=== PATIENT | male | born 1995 | race Caucasian/White ===

== ENCOUNTER → 2017-09-28 | Outpatient (CLI) | payer BC ==
[~2017-09-28] VITALS: Ht 175.3 cm; Wt 106.6 kg
[~2017-09-28] MED LIST: GADOBUTROL 7.5 MMOL/7.5 ML (GADAVIST) VIAL IV ONE; IOHEXOL 300 MG/ML 50 ML (OMNIPAQUE 300) VIAL IV ONE; LIDOCAINE 1% INJ 20 ML (XYLOCAINE) VIAL INJ ONE
[2017-09-28 07:54] VITALS: BP 132/80
[2017-09-28 08:24] VITALS: BP 124/67
--- NOTE | 2017-09-28 10:13 | Diagnostic Imaging Report ---
EXAMINATION: Fluoroscopic guided joint injection/arthrogram- left. INDICATION: Left shoulder pain, request for MR arthrogram of the shoulder is submitted. Fluoroscopy time: 20 seconds CONSENT: Informed consent was obtained from the patient. The risks, benefits, potential complications and alternatives were reviewed and all questions answered to the patient's satisfaction. PROCEDURE: After sterile preparation and draping, 1% lidocaine was utilized for local anesthesia. A 22 spinal needle is introduced into the glenohumeral joint under fluoroscopic guidance. After confirmation of proper positioning with intra-articular injection of, 15 ml of 1:150 concentration of Gadavist in normal saline is injected the into the joint. The patient tolerated the procedure well with no immediate complications. FINDINGS: Arthrogram demonstrates Normal distribution of contrast in the joint with no filling of the subacromial subdeltoid bursa seen. IMPRESSION: Successful fluoroscopic guided injection of diluted gadolinium into the left shoulder . MR arthrogram to follow. Dictated by: Dictated on workstation # [id number]
--- NOTE | 2017-09-28 10:28 | Diagnostic Imaging Report ---
PROCEDURE: MRI left joint upper extremity with intra-articular contrast. TECHNIQUE: Multiplanar, multisequence intra-articular contrast-enhanced MRI of the left upper extremity was accomplished. INDICATION: Left shoulder pain. FINDINGS: The glenohumeral joint is with contrast extension along the posterior aspect of the labrum at its attachment to the glenoid suggestive of a nondisplaced tear. There is also a labrum tear involving the inferior segment of the labrum. The superior labrum posteriorly also demonstrates a tear with the paralabral cyst at the posterior upper aspect of the glenoid rim measuring 6 x 6 x 4 mm. The biceps anchor appear unremarkable. The long head of biceps tendon appears normal and within its groove. The subscapularis tendon is intact. The supraspinatus and infraspinatus tendons demonstrate distal thickening and mild increased signal compatible with tendinosis with no high-grade tear. The acromioclavicular joint demonstrates no significant arthritic changes. The muscle bulk and signal appears normal. The bone marrow demonstrates no significant abnormality. IMPRESSION: Findings compatible with tears involving the posterior and inferior segments of the labrum. Dictated by: Dictated on workstation # [id number]
== END ==
LOC: RAD 07:43
PROVIDERS: ATTEND Orthopaedic Surgery
DX: M25.512 Pain in left shoulder (principal)
CPT/HCPCS: 23350; 73040; 73222